=== PATIENT | female | born 1980 | race Caucasian/White ===

== ENCOUNTER 2019-04-09 02:56 | Emergency (ER) | payer MEDICAID ==
[~2019-04-09] VITALS: Ht 157.5 cm; Wt 57.0 kg
[~2019-04-09 02:56] MED LIST: PREN-88 PO
[2019-04-09 04:20] VITALS: BP 127/84
== END 2019-04-09 04:28 | disposition home or self-care (01) ==
LOC: ER 02:56
DX: T74.21XA Adult sexual abuse, confirmed, initial encounter (principal); Y07.01 Husband, perpetrator of maltreatment and neglect
CPT/HCPCS: 99283